=== PATIENT | male | born 1970 | race Caucasian/White ===

== ENCOUNTER 2023-11-29 13:36 | Emergency (ER) | payer OTHER, SELFPAY ==
[2023-11-29] VITALS (10 sets, daily range): BP systolic 162–179; BP diastolic 91–107; PULSE 53–79; RESP 15–20; TEMP 37.1; O2SAT 95–100
--- NOTE | ~2023-11-29 | CT_ITS ---
EXAMINATION: CT abdomen pelvis w con DATE: 11/29/2023 14:39 INDICATION: Left lower quadrant abdominal pain. Fever. Abdominal pain. TECHNIQUE: Computed tomography (CT) of the abdomen and pelvis was performed with 100 mL Omnipaque 350 intravenous contrast. Automated exposure control and iterative reconstruction technique were employe d. The dose-length product was 712.71 mGy-cm. COMPARISON: None. FINDINGS: The visualized portions of the lung bases demonstrate mild atelectasis. A calcified right l calista nodule and calcified paraesophageal lymph nodes are consistent with old granulomatous disease. No pleural effusion. The heart size is normal. There are calcifications of the aortic valve. No pericar dial effusion. There is a 5 mm cyst in the liver. The gallbladder, spleen, pancreas, and adrenal glan ds are normal. The kidneys are normal. There are scattered diverticula in the colon. There is fat str anding around a diverticulum of the sigmoid colon, consistent with diverticulitis. The appendix is no rmal. There is mild aortic atherosclerosis. There are no pathologically enlarged lymph nodes. There i s trace pelvic ascites. The prostate is mildly enlarged. There is a left inguinal hernia containing f at. There is mild thoracic spondylosis and moderate lower lumbar spondylosis. IMPRESSION: 1. Acute sigmoid diverticulitis. No perforation or abscess. Reviewed, dictated and finalized at location A. [employer]URE REST[employer]ER
--- NOTE | 2023-11-29 13:53 | ECG_ITS ---
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
[2023-11-29 14:03] LABS: Basophils Absolute Auto 0.03 K/mm3 (0.00-0.10); Basophils Percent Auto 0.4 % (0.0-1.0); Eosinophils Absolute Auto 0.02 K/mm3 (0.02-0.50); Eosinophils Percent Auto 0.2 % (1.0-6.0); Hematocrit 38.3 % (40.0-54.0); Immature Granulocyte Absolute 0.04 K/mm3 (0.00-0.00); Immature Granulocyte Percent A 0.5 % (0.0-0.0); Lymphocytes Absolute Auto 0.68 K/mm3 (1.10-4.50); Lymphocytes Percent Auto 8.1 % (18.0-42.0); Mean Corpuscular HGB Conc 33.9 g/dL (32.0-36.0); Mean Corpuscular Volume 85.3 fL (78.0-102.0); Mean Platelet Volume 8.7 fl (8.7-11.0); Monocytes Absolute Auto 0.94 K/mm3 (0.10-0.90); Monocytes Percent Auto 11.2 % (2.0-11.0); Neutrophils Absolute Auto 6.7 K/mm3 (1.7-7.2); Neutrophils Percent Auto 79.6 % (50.0-70.0); Platelet Count Result 169 K/mm3 (150-420); Red Blood Count 4.49 M/mm3 (4.70-6.10); Red Cell Distribution Width 12.5 % (11.6-14.4); White Blood Count 8.4 K/mm3 (4.8-10.8)
[2023-11-29] MEDS: KETOROLAC 30 MG/ML VIAL (*BKC) IV PUSH (14:12)
[2023-11-29] MEDS: SODIUM CHLORIDE 0.9% IV 1,000 ML 999 ML IV CONT (14:13)
[2023-11-29 14:18] LABS: Partial Thromboplastin Time 31.4 SEC (23.90-30.70); Prothrombin Time 10.7 Seconds (9.50-12.10)
[2023-11-29 14:23] LABS: Alanine Aminotransferase 36 U/L (16-63); Albumin Level 3.8 g/dL (3.4-5.0); Alkaline Phosphatase 74 U/L (46-116); Anion Gap 10 mmol/L (8-16); Aspartate Amino Transferase 13 U/L (15-37); Bilirubin,Total 1.2 mg/dL (0.00-1.00); Blood Urea Nitrogen 14 mg/dL (7-18); CRP 14.7 mg/dL (0.0-0.9); Calcium 8.9 mg/dL (8.5-10.1); Carbon Dioxide 29 mmol/L (21-32); Chloride 98 mmol/L (98-108); Estimated CRCL calculation 91 ml/min; Estimated Glomerular Filt Rate > 60; Glucose 98 mg/dL (70-99); Lipase 17 U/L (16-77); Osmolality Calculated 284 mOsm/kg (285-295); Potassium 3.8 mmol/L (3.5-5.1); Sodium 137 mmol/L (136-145); Total Protein 7.5 g/dL (6.4-8.2); Troponin I 48.7 ng/L (0.00-60.4)
[2023-11-29 14:30] LABS: Lactic Acid Reflex 1.4 mmol/L (0.4-2.0)
[2023-11-29 14:43] LABS: Appearance Urine Clear (Clear); Bilirubin Urine Negative (Negative); Color Urine Yellow (Yellow); Glucose Urine UA Negative (Negative); Ketones Urine Negative (Negative); Leukocyte Esterase Ur Negative LEU/UL (Negative); Nitrate Urine Negative (Negative); Protein Urine Trace (Negative); Specific Grav Ur 1.025 (1.010-1.020); Urobilinogen Urine 0.2 mg/dL (0.2-1.0); pH Urine 6.5 (5.0-8.0)
[2023-11-29 14:51] LABS: Add Urine Microscopic? YES; Bacteria Urine Trace /hpf; Blood Urine Trace-lysed (Negative); Mucus Urine Moderate /lpf; RBC Urine None seen /hpf (0-2); WBC Urine None seen /hpf (0-3)
--- NOTE | 2023-11-29 15:16 | ED.ABDPAIN ---
HPI - Abdominal Pain General Chief Complaint: Abdominal Pain Stated Complaint: left abdominal pain Source: patient Mode of arrival: ambulatory Limitations: no limitations History of Present Illness HPI narrative: this is a 53-year-old male who presents with some left lower quadrant abdominal rates it rest about a 2/10 and with movement around a 6/10 with no flank pain no dysuria no diarrhea constipation no fever chills no nausea vomiting no chest pain or shortness of breath. Patient does have a history of high blood pressure. MD elicited complaint: abdominal pain Pertinent past history: diverticulitis Onset (ago): day(s) Related Data Home Medications Medication Instructions Recorded Confirmed atorvastatin 40 mg tablet 40 mg PO DAILY 09/27/19 nebivolol 10 mg tablet (Bystolic) 20 mg PO DAILY 09/27/19 11/29/23 escitalopram oxalate 10 mg tablet 10 mg PO DAILY 11/29/23 11/29/23 olmesartan 5 mg tablet (Benicar) 10 mg PO DAILY 11/29/23 11/29/23 Allergies Allergy/AdvReac Type Severity Reaction Status Date / Time Sulfa (Sulfonamide Allergy Unknown RASH Verified 09/27/19 15:51 Antibiotics) Review of Systems Review of Systems: All systems reviewed & are unremarkable except as noted in HPI and below PMFSH Past Medical History Medical History HTN (hypertension) Family History Family History Other CKD (chronic kidney disease) High cholesterol Hypertension Social History Social History Smoking status: Never smoker Gender identity (if verbalized by the patient): Male Exam Const: General: healthy appearing and no acute distress Nutritional Appearance: well nourished Chest: Chest palpation & inspection: normal inspection of the chest Resp: Effort & Inspection: normal respiratory effort Auscultation: clear to auscultation bilaterally Cardio: Rate: regular rate Rhythm: regular rhythm GI: GI Palp: Yes Soft to palpation and Yes Tenderness to palpation present (GI) Other: left lower quadrant abdominal pain with palpation : General: Yes bladder normal to palpation Urinary Catheter: Urinary Catheter: patent and draining Back/Spine/Pelvis: Back: no CVA tenderness Skin: General skin exam: normal color Rashes: no rashes Neuro: General: patient oriented x3 and moves all extremities Extrem: General: normal to inspection Psych: Mental Status: mental status grossly normal Course Course Emergency Course: patient currently afebrile his temperature is 37.1? C with a normal white blood cell count the rest of his blood work is within normal limits had a CT scan which shows that he has acute diverticulitis with no perforation. Patient afebrile with a normal white count will discharge home with p.o. antibiotics and pain medication and advised follow-up with his primary care. Vital Signs Vital signs: Vital Signs Temperature 37.1 C 11/29/23 13:36 Pulse Rate 79 11/29/23 13:36 Respiratory Rate 18 11/29/23 13:36 Blood Pressure 167/107 H 11/29/23 13:36 Pulse Oximetry 100 11/29/23 13:36 Oxygen Delivery Room Air 11/29/23 13:36 Temperature 37.1 C 11/29/23 13:36 Pulse Rate 60 11/29/23 14:45 Respiratory Rate 20 11/29/23 14:45 Blood Pressure 179/97 H 11/29/23 14:45 Pulse Oximetry 97 11/29/23 14:45 Oxygen Delivery Room Air 11/29/23 13:36 MDM - Abdominal Pain Lab Data 11/29/23 13:59 11/29/23 14:00 Labs: Lab Results 11/29/23 11/29/23 11/29/23 Range/Units 13:59 14:00 14:39 WBC 8.4 (4.8-10.8) K/mm3 RBC 4.49 L (4.70-6.10) M/mm3 Hgb 13.0 L (14.0-18.0) g/dL Hct 38.3 L (40.0-54.0) % MCV 85.3 (78.0-102.0) fL MCH 29.0 (27.0-31.0) pg MCHC 33.9 (32.0-36.0) g/dL RDW 12.5 (11.6-14.4) % Plt Count 169 (150-420) K/mm
== END 2023-11-29 15:45 | disposition home or self-care (01) ==
PROVIDERS: Emergency Provider Emergency Medicine
DX: K57.92 Diverticulitis of intestine, part unspecified, without perforation or abscess without bleeding (principal); I10 Essential (primary) hypertension; Z79.899 Other long term (current) drug therapy
CPT/HCPCS: 36415; 74177; 80053; 81001; 83605; 83690; 84484; 85025; 85610; 85730; 86140; 93005; 96361; 96374; 99284; J1885; J7030; Q9967